=== PATIENT | male | born 1980 | race Caucasian/White ===

== ENCOUNTER → 2017-02-09 | Outpatient (CLI) | payer BC | DX: M54.5 Low back pain (principal) ==

== ENCOUNTER → 2017-02-10 | Outpatient (CLI) | payer BC ==
--- NOTE | 2017-02-14 10:57 | Diagnostic Imaging Report ---
PROCEDURE: MRI lumbar spine. TECHNIQUE: A multiplanar/multisequence MRI of the lumbar spine was performed without contrast. INDICATION: Low back pain. FINDINGS: There is a transitional lumbosacral junction with a slightly prominent disc between the S1 and S2 levels. There is slight straightening of the lordotic curvature of the lumbar spine which could relate to muscle spasm. The alignment of the posterior spinal line is satisfactory. The vertebral body heights are preserved. There is suggestion of bilateral L5 pars defects. There is no spondylolisthesis, however. There is mild disc desiccation at the L5-S1 disc. The cauda equina and conus medullaris appear grossly unremarkable. At T12-L1, there is no disc herniation. No spinal canal or foraminal stenosis. At L1-2, there is no disc herniation and no spinal canal or foraminal stenosis. At L2-3, there is no disc herniation. Mild facet hypertrophy is seen. No spinal canal or foraminal stenosis. At L3-4, no disc herniation is seen. There is mild to moderate facet hypertrophy. No central canal, lateral recess, or foraminal stenosis. At L4-5, there is a minimal disc bulge. Mild to moderate facet hypertrophy is seen. There is no central canal, lateral recess, or foraminal stenosis. At L5-S1, there is a diffuse disc bulge with a prominent left foraminal superimposed disc protrusion. There are reactive changes and soft tissue hypertrophy around bilateral L5 pars defects. Moderate facet hypertrophy is also seen. No central canal stenosis. There is mild narrowing of the lateral recess bilaterally. A left posterolateral disc component is abutting the descending left S1 nerve root without compression. The foramina demonstrates bilateral moderate to severe stenosis, worse on the left. IMPRESSION: 1. There is a transitional lumbosacral junction with a slightly prominent disc seen between S1 and S2. 2. There are bilateral L5 pars defects with surrounding reactive tissue hypertrophy. No spondylolisthesis. 3. There is moderate to severe neuroforaminal narrowing at L5-S1, worse on the left. Dictated by: Dictated on workstation # [id number]
== END ==
LOC: RAD 09:21
DX: M54.5 Low back pain (principal)
CPT/HCPCS: 72148

== ENCOUNTER → 2018-12-24 | Outpatient (CLI) | payer BC ==
--- NOTE | 2018-12-24 15:27 | Diagnostic Imaging Report ---
INDICATION: Low back pain. TIME OF EXAM: 2:40 PM FINDINGS: Curvature is normal. There is grade 1 spondylolisthesis of L5 on S1. There appears to be pars defects at the L5-S1 level. Neutral view demonstrates listhesis to be approximately 5 mm. During extension, this increases to approximately 7-8 mm. This is approximately 9 mm during flexion. All other levels are without evidence of motion. There are some Schmorl's nodes involving multiple endplates. Disc spaces are well maintained. IMPRESSION: L5-S1 spondylolysis and spondylolisthesis. There is motion during flexion and extension maneuvers. No other significant abnormality is seen. Dictated by: Dictated on workstation # [id number]
== END ==
LOC: RAD 14:21
PROVIDERS: ATTEND Nurse Practitioner Family
DX: M47.817 Spondylosis without myelopathy or radiculopathy, lumbosacral region (principal); M43.17 Spondylolisthesis, lumbosacral region
CPT/HCPCS: 72114